=== PATIENT | male | born 1960 | race Two or more races ===

== ENCOUNTER 2020-03-29 12:13 | Outpatient (CLI) | payer BC | END 2020-03-29 23:59 | disposition home or self-care (01) | LOC: XR 12:13 | PROVIDERS: ATTEND Specialist | DX: R05 Cough (principal) | CPT/HCPCS: 71045-TC ==

== ENCOUNTER 2020-05-12 11:30 | Outpatient (CLI) | payer BC | END 2020-05-12 23:59 | disposition home or self-care (01) | LOC: WOU 11:30 | PROVIDERS: ATTEND Specialist | DX: L59.9 Disorder of the skin and subcutaneous tissue related to radiation, unspecified (principal); C02.1 Malignant neoplasm of border of tongue | CPT/HCPCS: G0463 ==